=== PATIENT | female | born 1990 | race Two or more races ===

== ENCOUNTER 2024-10-14 19:18 | Emergency (ER) | payer OTHER ==
[~2024-10-14] VITALS: Ht 162.6 cm; Wt 83.9 kg
[2024-10-14] MEDS ORDERED: TRANDATE300 MG PO (19:24)
[2024-10-14 20:42] LABS: HEMATOCRIT 38.9 % (36.0-45.00); HEMOGLOBIN 13.3 g/dL (12.0-15.00); MEAN CELL VOLUME 92.2 fL (80.00-100.00); MEAN CORPUSCULAR HEMOGLOBIN 31.4 pg (27.00-32.0); MEAN CORPUSCULAR HGB CONC 34.1 g/dl (32.0-36.0); PLATELET COUNT 253 K/uL (150-450); RED BLOOD COUNT 4.22 M/uL (4.00-6.00); RED CELL DISTRIBUTION WIDTH 13.3 % (11.5-14.5)
[2024-10-14 20:46] LABS: URINE APPEARANCE Clear; URINE BILIRRUBIN Negative (NEGATIVE); URINE COLOR Yellow; URINE GLUCOSE Negative (NEGATIVE); URINE KETONE Negative (NEGATIVE); URINE LEUKOCYTE Negative; URINE NITRATE Negative; URINE PROTEIN Negative (NEGATIVE)
[2024-10-14 20:49] LABS: URINE BACTERIA 489.5 uL (0.0-1933); URINE EPITHELIAL CELLS 10.1 uL (0.0-38.8); URINE RBC 8.9 uL (0.0-20.8); URINE WBC 12.1 uL (0.0-23.2)
[2024-10-14 20:50] LABS: URINE BLOOD TRACES
== END 2024-10-14 22:40 ==
LOC: ER 19:19
PROVIDERS: Emergency Medicine
DX: O20.8 Other hemorrhage in early pregnancy (principal); Z3A.10 10 weeks gestation of pregnancy; O26.899 Other specified pregnancy related conditions, unspecified trimester; R10.2 Pelvic and perineal pain; I10 Essential (primary) hypertension

== ENCOUNTER 2025-01-16 12:44 | Outpatient (CLI) | payer OTHER ==
[~2025-01-16 12:44] MED LIST: TRANDATE300 MG PO
== END 2025-01-16 13:19 | disposition home or self-care (01) ==
LOC: NST 12:44
PROVIDERS: ATTEND Obstetrics & Gynecology
DX: Z34.82 Encounter for supervision of other normal pregnancy, second trimester (principal)

== ENCOUNTER 2025-01-24 12:58 | Outpatient (CLI) | payer OTHER | END 2025-01-24 13:54 | disposition home or self-care (01) | LOC: NST 12:58 | PROVIDERS: ATTEND Obstetrics & Gynecology Gynecology | DX: Z34.82 Encounter for supervision of other normal pregnancy, second trimester (principal) ==

== ENCOUNTER 2025-03-16 21:04 | Inpatient (IN) | payer OTHER ==
[~2025-03-16] VITALS: Ht 165.1 cm; Wt 84.8 kg
[2025-03-16 20:27] VITALS: BP 115/80
[2025-03-16] MEDS ORDERED: FOLIC ACID20 MG (21:15)
[2025-03-16] MEDS ORDERED: COMPLEX B-1001 EACH (21:17)
[2025-03-16] MEDS ORDERED: LABETALOL HCL 100 MG TABLET PO ONE (21:26)
[2025-03-16] MEDS ORDERED: LABETALOL HCL 200 MG TABLET PO ONE (21:26)
[2025-03-16] MEDS ORDERED: MAGNESIUM SULFATE IN WATER 500 ML IV SCH (21:30)
[2025-03-16] MEDS ORDERED: MORPHINE SULFATE 4 MG/ML CARTRIDGE IV PRN (21:30)
[2025-03-16] MEDS ORDERED: LABETALOL HCL 300 MG TABLET PO SCH (21:30)
[2025-03-16] MEDS ORDERED: MAGNESIUM SULFATE IN WATER 100 ML IV ONE (21:30)
[2025-03-16] MEDS ORDERED: RINGERS SOLUTION,LACTATED 1,000 ML IV SCH (21:30)
[2025-03-16 21:40] LABS: BASO % 0.2 % (0.1-1.2); EOS # 0.18 (0.04-0.54); EOS % 1.4 % (0.7-7.0); LYMPH # 1.46 (1.18-3.74); LYMPH % 11.4 % (19.3-53.1); MEAN PLATELET VOLUME 8.90 fl (9.4-12.4); MONO # 0.76 (0.24-0.82); MONO % 5.9 % (4.7-12.5); NEUT # 10.35 (1.56-6.13); NEUT % 80.7 % (34.0-71.1); RED CELL DISTRIBUTION WIDTH 12.7 % (11.6-14.4); URINE BILIRRUBIN NEGATIVE (NEGATIVE); URINE BLOOD NEGATIVE; URINE GLUCOSE NEGATIVE (NEGATIVE); URINE KETONE NEGATIVE (NEGATIVE); URINE LEUKOCYTE TRACE; URINE NITRATE NEGATIVE; URINE PROTEIN NEGATIVE (NEGATIVE); URINE UROBILINOGEN 0.2 E.U./dl
[2025-03-16] MEDS ORDERED: BETAMETHASONE ACETATE,SOD PHOS 30 MG/5 ML ML IM ONE (22:00)
[2025-03-16 22:06] LABS: INR < 0.93
[2025-03-16 22:09] LABS: URINE APPEARANCE CLEAR; URINE COLOR YELLOW
[2025-03-16 22:11] LABS: ALT/SGPT 28.0 U/L (12-78); AST/SGOT 16.0 U/L (15-37); BILIRUBIN TOTAL 0.32 mg/dL (0.3-1.2); BUN CREA RATIO 32.0 (7.0-25.0); CREATININE SERUM 0.41 mg/dL (0.55-1.02); GFR 176.54; GLOBULINA 3.2 G/DL (2.4-3.5); GLUCOSE FASTING 109.0 mg/dL (65-100); OSMOLALITY SERUM 280.0 MOSM/KG (275-295); URINE BACTERIA MODERATE; URINE CRYSTALS NEGATIVE /HPF; URINE MUCUS SCANT
[2025-03-16 23:30] VITALS: BP 105/72
[2025-03-17] VITALS (7 sets, daily range): BP systolic 97–118; BP diastolic 62–74
[2025-03-17] MEDS ORDERED: ACETAMINOPHEN 500 MG GEL..CAP PO PRN (05:00)
[2025-03-17] MEDS ORDERED: FOLIC ACID 1 MG TABLET PO SCH (09:00)
[2025-03-17] MEDS ORDERED: NIFEDIPINE 60 MG TAB.SA.OSM PO NR (10:30)
[2025-03-17] MEDS ORDERED: NIFEDIPINE 60 MG TAB.SA.OSM PO SCH (21:00)
[2025-03-17] MEDS ORDERED: BETAMETHASONE ACETATE,SOD PHOS 30 MG/5 ML ML IM NR (22:00)
[2025-03-18 03:24] VITALS: BP 116/73; O2SAT 100
[2025-03-18 06:10] VITALS: BP 103/63; O2SAT 97
== END 2025-03-18 09:49 | disposition home or self-care (01) | DRG 833 ==
LOC: LDR 21:04
PROVIDERS: ADMIT Obstetrics & Gynecology; ATTEND Obstetrics & Gynecology
PROC: 4A1HXCZ Monitoring of Products of Conception, Cardiac Rate, External Approach (ICD-10-PCS; principal; 2025-03-16)
PROC: BY4FZZZ Ultrasonography of Third Trimester, Single Fetus (ICD-10-PCS; 2025-03-17)
DX: O26.893 Other specified pregnancy related conditions, third trimester (principal); R10.2 Pelvic and perineal pain; Z3A.32 32 weeks gestation of pregnancy

== ENCOUNTER 2025-04-06 14:32 | Outpatient (CLI) | payer OTHER ==
[2025-04-06 14:00] VITALS: BP 126/81
[~2025-04-06 14:32] MED LIST changes: +COMPLEX B-1001 EACH; +FOLIC ACID20 MG
[2025-04-06] MEDS ORDERED: IRON325 MG PO (14:39)
[2025-04-06] MEDS ORDERED: PRENATAL + DHA1 EAC1 PO (14:40)
[2025-04-06] MEDS ORDERED: PROCARDIA PO (14:41)
[2025-04-06] MEDS ORDERED: NIFEDIPINE 60 MG TAB.SA.OSM PO SCH (14:45)
[2025-04-06] MEDS ORDERED: ACETAMINOPHEN 500 MG GEL..CAP PO PRN (14:45)
[2025-04-06 15:16] VITALS: BP 110/73
[2025-04-06 15:32] VITALS: BP 110/73
== END 2025-04-06 16:15 | disposition home or self-care (01) ==
LOC: OBS/DEL 14:32
PROVIDERS: ATTEND Obstetrics & Gynecology
DX: O47.03 False labor before 37 completed weeks of gestation, third trimester (principal); Z3A.35 35 weeks gestation of pregnancy

== ENCOUNTER 2025-04-21 14:20 | Inpatient (IN) | payer OTHER ==
[2025-04-21 14:06] VITALS: BP 130/84
[~2025-04-21 14:20] MED LIST changes: +IRON325 MG PO; +PRENATAL + DHA1 EAC1 PO; +PROCARDIA PO
[2025-04-21] MEDS ORDERED: RINGERS SOLUTION,LACTATED 1,000 ML IV SCH (14:30)
[2025-04-21] MEDS ORDERED: FOLIC ACID20 MG PO (14:30)
[2025-04-21] MEDS ORDERED: ERYTHROMYCIN BASE OPHT 1GM EACH TUBE OP ONE (14:53)
[2025-04-21] MEDS ORDERED: CHLORHEXIDINE GLUCONATE 120 ML BOTTLE TOP ONE ×2 (14:54→18:32)
[2025-04-21] MEDS ORDERED: OXYTOCIN 20 UNITS/1000ML RL PIGGYBAG IV ONE (14:54)
[2025-04-21] MEDS ORDERED: LIDOCAINE HCL 1% 10ML VIAL ONE (14:54)
[2025-04-21 15:27] LABS: BASO % 0.2 % (0.1-1.2); EOS # 0.08 (0.04-0.54); EOS % 0.8 % (0.7-7.0); LYMPH # 1.51 (1.18-3.74); LYMPH % 15.9 % (19.3-53.1); MEAN PLATELET VOLUME 9.50 fl (9.4-12.4); MONO # 0.63 (0.24-0.82); MONO % 6.7 % (4.7-12.5); NEUT # 7.19 (1.56-6.13); NEUT % 76.0 % (34.0-71.1); RED CELL DISTRIBUTION WIDTH 12.9 % (11.6-14.4)
[2025-04-21 15:56] LABS: ALT/SGPT 21.0 U/L (12-78); AST/SGOT 15.0 U/L (15-37); BILIRUBIN TOTAL 0.34 mg/dL (0.3-1.2); BUN CREA RATIO 27.0 (7.0-25.0); CREATININE SERUM 0.55 mg/dL (0.55-1.02); GFR 125.78; GLOBULINA 3.1 G/DL (2.4-3.5); GLUCOSE FASTING 90.0 mg/dL (65-100); OSMOLALITY SERUM 282.0 MOSM/KG (275-295)
[2025-04-21] MEDS ORDERED: OXYTOCIN 500 ML IV SCH (16:00)
[2025-04-21] MEDS ORDERED: DESMOPRESSIN ACETATE 4 MCG/ML AMPUL IV NR (16:00)
[2025-04-21] MEDS ORDERED: MORPHINE SULFATE 4 MG/ML CARTRIDGE IV PRN (16:15)
[2025-04-21 17:22] VITALS: BP 128/57
[2025-04-21 17:30] VITALS: BP 126/71
[2025-04-21] MEDS ORDERED: POVIDONE-IODINE 118 ML BOTT TOP ONE (17:35)
[2025-04-21] MEDS ORDERED: CEFAZOLIN SODIUM 1,000 MG VIAL ONE (18:25)
[2025-04-21 18:57] LABS: BASO % 0.2 % (0.1-1.2); EOS # 0.09 (0.04-0.54); EOS % 0.5 % (0.7-7.0); LYMPH # 1.03 (1.18-3.74); LYMPH % 6.3 % (19.3-53.1); MEAN PLATELET VOLUME 9.30 fl (9.4-12.4); MONO # 0.74 (0.24-0.82); MONO % 4.5 % (4.7-12.5); NEUT # 14.41 (1.56-6.13); NEUT % 88.0 % (34.0-71.1); RED CELL DISTRIBUTION WIDTH 12.9 % (11.6-14.4)
[2025-04-21] MEDS ORDERED: SODIUM CHLORIDE 0.9% IV ONE (21:00)
[2025-04-21] MEDS ORDERED: DESMOPRESSIN ACETATE IV ONE (21:00)
[2025-04-21 21:12] VITALS: BP 133/82
[2025-04-22 02:53] VITALS: BP 107/63
[2025-04-22 08:44] VITALS: BP 120/76
[2025-04-22] MEDS ORDERED: LABETALOL HCL 200 MG TABLET PO SCH (09:40)
[2025-04-22] MEDS ORDERED: TAMSULOSIN HCL 0.4 MG CAP PO SCH (10:57)
[2025-04-22] MEDS ORDERED: BISACODYL 10 MG/SUPP.RECT SUPP.RECT RECTAL SCH (13:00)
[2025-04-22 13:38] VITALS: BP 127/72
[2025-04-22 16:21] VITALS: BP 117/74
[2025-04-22 20:32] VITALS: BP 116/70
[2025-04-22 21:40] VITALS: BP 131/85; O2SAT 99
[2025-04-22 21:51] LABS: BASO % 0.2 % (0.1-1.2); EOS # 0.18 (0.04-0.54); EOS % 1.4 % (0.7-7.0); LYMPH # 1.76 (1.18-3.74); LYMPH % 13.3 % (19.3-53.1); MEAN PLATELET VOLUME 8.70 fl (9.4-12.4); MONO # 0.73 (0.24-0.82); MONO % 5.5 % (4.7-12.5); NEUT # 10.43 (1.56-6.13); NEUT % 79.0 % (34.0-71.1); RED CELL DISTRIBUTION WIDTH 12.5 % (11.6-14.4)
[2025-04-22 22:20] LABS: ALT/SGPT 26.0 U/L (12-78); AST/SGOT 45.0 U/L (15-37); BILIRUBIN TOTAL 0.55 mg/dL (0.3-1.2); BUN CREA RATIO 24.0 (7.0-25.0); CREATININE SERUM 0.41 mg/dL (0.55-1.02); GFR 176.54; GLOBULINA 2.4 G/DL (2.4-3.5); GLUCOSE FASTING 96.0 mg/dL (65-100); OSMOLALITY SERUM 256.0 MOSM/KG (275-295)
[2025-04-22] MEDS ORDERED: SOD FERRIC GLUC COMPLX/SUCROSE 62.5 MG/5 ML AMPUL IV SCH (22:30)
[2025-04-22] MEDS ORDERED: ACETAMINOPHEN 500 MG GEL..CAP PO PRN (23:45)
[2025-04-23] VITALS: BP 121/71
[2025-04-23] MEDS ORDERED: TAMSULOSIN HCL 0.4 MG CAP PO SCH (09:00)
[2025-04-23] MEDS ORDERED: IRON/V.C/V.B12/FOLIC A/VIT. E 1 CAPL CAPLET PO SCH (09:00)
[2025-04-23 09:26] VITALS: BP 122/72
[2025-04-23 15:43] VITALS: BP 115/82
[2025-04-24] VITALS: BP 125/76
[2025-04-24 08:00] VITALS: BP 125/85
== END 2025-04-24 12:20 | disposition home or self-care (01) | DRG 807 ==
LOC: OB/GYN 14:20 → LDR 14:20 → OB/GYN 19:10
PROVIDERS: Obstetrics & Gynecology Gynecology; ADMIT Obstetrics & Gynecology; ATTEND Obstetrics & Gynecology
PROC: 0KQM0ZZ Repair Perineum Muscle, Open Approach (ICD-10-PCS; 2025-04-21)
PROC: 0UQG7ZZ Repair Vagina, Via Natural or Artificial Opening (ICD-10-PCS; 2025-04-21)
PROC: 4A1HXCZ Monitoring of Products of Conception, Cardiac Rate, External Approach (ICD-10-PCS; 2025-04-21)
PROC: 10E0XZZ Delivery of Products of Conception, External Approach (ICD-10-PCS; principal; 2025-04-21 19:15)
DX: O70.1 Second degree perineal laceration during delivery (principal); Z37.0 Single live birth; Z3A.37 37 weeks gestation of pregnancy